=== PATIENT | male | born 1965 | race Caucasian/White ===

== ENCOUNTER 2017-07-10 13:50 | Emergency (ER) | payer BC ==
--- NOTE | 2017-07-10 16:33 | ERPHSYRPT ---
- History of Present Illness Time Seen by Provider: 07/10/17 16:26 Source: patient, family Exam Limitations: no limitations Patient Subjective Stated Complaint: rash to right back and pain to right leg Triage Nursing Assessment: To er c/o rash to right side back with pain associated and pain to right leg. No rash noted to right leg though pt states very sensitive to touch. rash is dry and not seeping pt states pain is worse at night and with clothing. pt was placed on acycolvir 2 weeks ago and finished med with no reilief. pt p/w/d resp easy no other sx Physician History: This is a 52-year-old white male with history of diabetes type 2 coronary artery disease and high blood pressure. Patient states he has had a papular rash which resembled chickenpox which has dried up this was about 3 weeks ago. He states that he was placed on an antiviral by his doctor. He is having pain in his right scapular area right shoulder and right of lateral hip and anterior thigh. He has no obvious injuries. He states the pain has been going on since he was having the rash earlier. Past medical history includes diabetes type 2 coronary artery disease high blood pressure. Timing/Duration: week(s) (3 weeks) Severity: moderate Modifying Factors: Improves With: other (patient finished a course of antivirals the end of May) Associated Symptoms: rash, other (pain right scapular area right lateral hip right anterior thigh 3 weeks), No nausea, No vomiting, No abdominal pain, No shortness of breath, No heartburn, No diaphoresis, No cough, No chills, No chest pain, No fever, No headaches, No loss of appetite, No malaise, No syncope , No seizure, No weakness Allergies/Adverse Reactions: atenolol Allergy (Verified 07/10/17 15:28) Home Medications: Empagliflozin [Jardiance] 25 mg PO DAILY 07/10/17 [History] Fenofibrate,Micronized [Fenofibrate] 134 mg PO DAILY 07/10/17 [History] Glimepiride [Glimepiride] 2 mg PO DAILY 07/10/17 [History] Hydrochlorothiazide [Hydrochlorothiazide] 12.5 mg PO DAILY 07/10/17 [History] Losartan Potassium [Losartan Potassium] 100 mg PO DAILY 07/10/17 [History] Metformin HCl 500 mg [Glucophage 500 MG] 1,000 mg PO BIDWM 07/10/17 [ History] Pravastatin Sodium [Pravastatin Sodium] 40 mg PO DAILY 07/10/17 [History] Hx Influenza Vaccination/Date Given: No - Review of Systems Constitutional: No Fever, No Chills Eyes: No Symptoms Ears, Nose, & Throat: No Symptoms Respiratory: No Cough, No Dyspnea Cardiac: No Chest Pain, No Edema, No Syncope Abdominal/Gastrointestinal: No Abdominal Pain, No Nausea, No Vomiting, No Diarrhea Genitourinary Symptoms: No Dysuria Musculoskeletal: Other (pain right posterior scapular area right lateral thigh right anterior thigh3 weeks) Skin: Rash ( papular rash right posterior upper thoracic region which seems to be drying up), Other Neurological: No Symptoms Psychological: No Symptoms Endocrine: No Symptoms All Other Systems: Reviewed and Negative - Past Medical History Pertinent Past Medical History: Yes Cardiac History: Coronary Artery Disease, Hypertension Endocrine Medical History: Diabetes Type II - Past Surgical History Past Surgical History: No - Social History Smoking Status: Never smoker Drug Use: none - Nursing Vital Signs Nursing Vital Signs: Initial Vital Signs Temperature 97.8 F 07/10/17 15:33 Pulse Rate 86 07/10/17 15:33 Respiratory Rate 18 07/10/17 15:33 Blood Pressure 156/94 07/10/17 15:33 O2 Sat by Pulse Oximetry 96 07/10/17 15:33 Pain Scale Pain Intensity 8 - Physical Exam General Appearance: mild distress Eye Exam: PERRL/EOMI, eyes nml inspection Ears, Nose, Throat Exam: normal ENT inspection, TMs normal, pharynx normal, moist mucous membranes Neck Exam: normal inspection, non-tender, supple, full range of motion Respiratory Exam: normal breath sounds, lungs clear, No respiratory distress Cardiovascular Exam: regular rate/rhythm, normal heart sounds, normal peripheral pulses Gastrointestinal/Abdomen Exam: soft, normal bowel sounds, No tenderness, No mass Back Exam: normal inspection, normal range of motion, No CVA tenderness, No vertebral tenderness Extremity Exam: normal inspection, normal range of motion, pelvis stable Neurologic Exam: alert, oriented x 3, cooperative, normal mood/affect, nml cerebellar function, nml station & gait, sensation nml, No motor deficits Skin Exam: other (patient appears to have some a a few small scabbed areas on his rigt shoulder, each less than 1 cm. Area surrounding these somewhat tender with palpation) SpO2 Interpretation: normal (96%) SpO2: 96 Oxygen Delivery: Room Air - Course Nursing assessment & vital signs reviewed: Yes Ordered Tests: Active Orders 24 hr Category Date Time Status Accucheck STAT Care 07/10/17 16:26 Active Accucheck STAT Care 07/10/17 17:26 Active IV Insertion STAT Care 07/10/17 16:34 Active CBC W DIFF Stat Lab 07/10/17 16:55 Completed CMP Stat Lab 07/10/17 16:55 Completed Medication Summary Generic Name Dose Route Start Last Admin Trade Name Freq PRN Reason Stop Dose Admin Hydrocodone Bitart/Acetaminophen 1 tab 07/10/17 17:36 [place] 5/325 Mg PO 07/10/17 17:37 STAT ONE Discontinued Medications Generic Name Dose Route Start Last Admin Trade Name Freq PRN Reason Stop Dose Admin Sodium Chloride 1,000 mls @ 999 mls/hr 07/10/17 16:34 07/10/17 16:40 Sodium Chloride 0.9% 1000 Ml IV 07/10/17 17:34 999 mls/hr .Q1H1M STA Administration Sodium Chloride Confirm 07/10/17 16:37 Sodium Chloride 0.9% 1000 Ml Administered 07/10/17 16:38 Dose 1,000 mls @ ud .ROUTE .STK-MED ONE Lab/Rad Data: Laboratory Result Diagrams 07/10/17 16:55 07/10/17 16:55 Laboratory Results 07/10/17 07/10/17 Range/Units 16:55 16:55 WBC 6.2 (4.0-10.5) K/mm3 RBC 4.85 (4.1-5.6) M/mm3 Hgb 14.8 (12.5-18.0) gm/dl Hct 43.4 (42-50) % MCV 89.5 (78-100) fl MCH 30.5 (26-32) pg MCHC 34.1 (32-36) g/dl RDW 12.8 (11.5-14.0) % Plt Count 165 (150-450) K/mm3 MPV 11.1 H (6-9.5) fl Gran % 55.8 (36.0-66.0) % Lymphocytes % 30.9 (24.0-44.0) % Monocytes % 9.1 (0.0-12.0) % Eosinophils % 3.9 (0.00-5.0) % Basophils % 0.3 (0.0-0.4) % Basophils # 0.02 (0-0.4) Sodium 135 L (136-145) mEq/L Potassium 3.9 (3.5-5.1) mEq/L Chloride 100 (98-107) mEq/L Carbon Dioxide 24.9 (21-32) mEq/L Anion Gap 13.7 (5-15) MEQ/L BUN 20 (9-20) mg/dL Creatinine 1.16 (0.55-1.30) mg/dl Estimated GFR > 60 ML/MIN Glucose 304 H (70-110) MG/DL Calcium 8.7 (8.5-10.1) mg/dL Total Bilirubin 0.40 (0.2-1.0) mg/dL AST 26 (15-37) U/L ALT 46 (12-78) U/L Alkaline Phosphatase 90 (46-116) U/L Serum Total Protein 7.3 (6.4-8.2) gm/dL Albumin 3.6 (3.4-5.0) g/dL - Progress Progress: improved Progress Note: 07/10/17 16:32 This is a 52-year-old white male arrives with complaint of a burning pain in his right upper posterior thoracic region right hip right leg symptoms for 3 weeks corresponding to a rash which seems to have been dried up and responded with treatment to antivirals by his family doctor. Patient appears to be stable he does state that his blood sugars were high today. Blood sugar here in the emergency room is 315. Will offer patient normal saline 1 L CBC CMP Will anticipate narcotic analgesia for this patient after I check inspect.. 07/10/17 17:37 Patient's blood sugar down to 228. Labs essentially normal otherwise. Will discharge patient. Patient will be given [place] 5/325 orally sent home with prescription for [place] 5 /325 one orally every 4-6 hours as needed for pain. Patient to follow-up with his family doctor. - Departure Time of Disposition: 17:37 Departure Disposition: Home Clinical Impression: Neuropathy, Postherpetic neuralgia, Hyperglycemia Condition: Fair Critical Care Time: No Referrals: MERE MNOTES MD [Primary Care Provider] - Additional Instructions: Return home. [place] 5/325 #12 one orally 4-6 hours as needed for pain. Monitor your blood sugars carefully. Follow-up with your family doctor. Return for acute distress or for severe symptoms. Prescriptions: Hydrocodone/Acetaminophen [[place] 5-325 Tablet] 1 tab PO Q4-6HPRN PRN #12 tablet MDD 6 tablets PRN Reason: pain
[2017-07-10] MEDS ORDERED: Sodium Chloride 0.9% 1000 ML 1,000 ML IV STA (16:34)
[2017-07-10] MEDS ORDERED: Sodium Chloride 0.9% 1000 ML 1,000 ML ONE (16:37)
[2017-07-10 17:04] LABS: BASOPHIL % 0.3 % (0.0-0.4); Basophil (Absolute #) 0.02 (0-0.4); Eosinophil % 3.9 % (0.00-5.0); Eosinophil (Absolute #) 0.24 (0-0.5); Granulocyte Absolute (ANC) 3.43 (1.4-6.9); Granulocytes % 55.8 % (36.0-66.0); Hematocrit 43.4 % (42-50); Hemoglobin 14.8 gm/dl (12.5-18.0); Lymphocytes % 30.9 % (24.0-44.0); Mean Cell Volume 89.5 fl (78-100); Mean Corpuscular Hemoglobin 30.5 pg (26-32); Mean Corpuscular Hgb Concent. 34.1 g/dl (32-36); Mean Platelet Volume 11.1 fl (6-9.5); Monocyte (Absolute #) 0.56 (0.0-1.3); Monocytes % 9.1 % (0.0-12.0); Platelet Count 165 K/mm3 (150-450); Red Blood Count 4.85 M/mm3 (4.1-5.6); Red Cell Distribution Width 12.8 % (11.5-14.0); White Blood Count 6.2 K/mm3 (4.0-10.5)
[2017-07-10 17:24] LABS: ALBUMIN 3.6 g/dL (3.4-5.0); ALKALINE PHOSPHATASE 90 U/L (46-116); ANION GAP 13.7 MEQ/L (5-15); BLOOD UREA NITROGEN 20 mg/dL (9-20); CHLORIDE 100 mEq/L (98-107); Calcium 8.7 mg/dL (8.5-10.1); Carbon Dioxide 24.9 mEq/L (21-32); Creatinine 1 1.16 mg/dl (0.55-1.30); EST GLOMERULAR FILTRATION RATE > 60 ML/MIN; Glucose 304 MG/DL (70-110); Potassium 3.9 mEq/L (3.5-5.1); SGOT/AST 26 U/L (15-37); SGPT/ALT 46 U/L (12-78); SODIUM 135 mEq/L (136-145); Total Protein 7.3 gm/dL (6.4-8.2)
[2017-07-10 17:36] VITALS: O2SAT 96
[2017-07-10] MEDS ORDERED: NORCO 5/325 MG PO ONE (17:36)
[2017-07-10] MEDS ORDERED: NORCO 5/325 MG ONE (17:45)
[2017-07-10 17:55] VITALS: BP 146/77; PULSE 78
== END 2017-07-10 17:54 | disposition home or self-care (01) ==
LOC: ED 13:50
DX: G62.9 Polyneuropathy, unspecified (principal); B02.29 Other postherpetic nervous system involvement; E11.65 Type 2 diabetes mellitus with hyperglycemia; Z79.84 Long term (current) use of oral hypoglycemic drugs
CPT/HCPCS: 36000; 36415; 80053; 82962; 85025; 96360; 99284; 99285; A9270-GY

== ENCOUNTER 2017-10-31 00:24 | Observation (INO) | payer BC ==
[2017-10-31] MEDS ORDERED: ROCEPHIN 1 Gm-D5w 50 ml Bag** 1 G/50 ML IVPB IV STA (00:48)
[2017-10-31] MEDS ORDERED: PROVENTIL 2.5 MG/3 ML NEB IH ONE ×2 (00:48→00:59)
[2017-10-31] MEDS ORDERED: Zithromax 500 MG/ 250 ML NaCl Premix 500 MG/250 ML IVPB IV STA (00:48)
[2017-10-31] MEDS ORDERED: Sodium Chloride 0.9% 1000 ML 1,000 ML IV STA ×3 (00:48→04:36)
[2017-10-31] MEDS ORDERED: solu-MEDROL 125 MG IV ONE (00:48)
--- NOTE | 2017-10-31 00:57 | ERPHSYRPT ---
- History of Present Illness Time Seen by Provider: 10/31/17 00:40 Source: patient Exam Limitations: clinical condition Patient Subjective Stated Complaint: pt states he has been working in a basement all day cleaning mold and mildew; started having cough and difficulty catching his breath this pm. Triage Nursing Assessment: pt a&o x3; skin p, w, & d; assisted out of pov to wheelchair by nursing staff; family at bedside. Physician History: PATIENT WITH A HISTORY OF TYPE 2 DIABETES, HYPERTENSION AFTER IN HIS BASEMENT 2 DAYS CLEANING UP MOLD AND MILDEW COMPLAINS OF PERSISTENT COUGH, PRODUCTIVE, DIFFICULTY BREATHING AND PAIN UPON INSPIRATION. HAS EXERTIONAL DYSPNEA. DENIES FEVER OR CHILLS. Timing/Duration: day(s) Severity of Dyspnea-Max: moderate Severity of Dyspnea-Current: moderate Possible Cause: no prior episodes Modifying Factors: Improves With: coughing, other (CLEANING UP MILDEW, MOLD) Associated Symptoms: painful breathing, productive cough International travel in last 2 weeks: No Allergies/Adverse Reactions: atenolol Allergy (Intermediate, Verified 10/31/17 00:32) Difficulty Breathing Home Medications: Empagliflozin [Jardiance] 25 mg PO DAILY 07/10/17 [History] Fenofibrate,Micronized [Fenofibrate] 134 mg PO DAILY 07/10/17 [History] Glimepiride [Glimepiride] 2 mg PO DAILY 07/10/17 [History] Losartan Potassium [Losartan Potassium] 100 mg PO DAILY 07/10/17 [History] Metformin HCl 500 mg [Glucophage 500 MG] 1,000 mg PO BIDWM 07/10/17 [ History] Pravastatin Sodium [Pravastatin Sodium] 40 mg PO DAILY 07/10/17 [History] hydroCHLOROthiazide [Hydrochlorothiazide] 12.5 mg PO DAILY 07/10/17 [History] Hx Tetanus, Diphtheria Vaccination/Date Given: Yes Hx Influenza Vaccination/Date Given: No Hx Pneumococcal Vaccination/Date Given: No Immunizations Up to Date: No - Review of Systems Constitutional: No Fever, No Chills Eyes: No Symptoms Ears, Nose, & Throat: No Symptoms Respiratory: Cough, Dyspnea, Dyspnea on Exertion (SANDOVAL) Cardiac: No Symptoms, Chest Pain, No Edema, No Syncope Abdominal/Gastrointestinal: No Symptoms, No Abdominal Pain, No Nausea, No Vomiting, No Diarrhea Genitourinary Symptoms: No Symptoms, No Dysuria Musculoskeletal: No Symptoms, No Back Pain, No Neck Pain Skin: No Symptoms, No Rash Neurological: No Dizziness, No Focal Weakness, No Sensory Changes Psychological: No Symptoms Endocrine: No Symptoms All Other Systems: Reviewed and Negative - Past Medical History Pertinent Past Medical History: Yes Cardiac History: Coronary Artery Disease, Hypertension Endocrine Medical History: Diabetes Type II - Past Surgical History Past Surgical History: No - Social History Smoking Status: Never smoker Exposure to second hand smoke: No Drug Use: none Patient Lives Alone: No - Nursing Vital Signs Nursing Vital Signs: Initial Vital Signs Temperature 99.1 F 10/31/17 00:25 Pulse Rate 108 H 10/31/17 00:25 Respiratory Rate 20 10/31/17 00:25 Blood Pressure 155/98 10/31/17 00:25 O2 Sat by Pulse Oximetry 95 10/31/17 00:25 Pain Scale Pain Intensity 0 - Physical Exam General Appearance: moderate distress Eye Exam: PERRL/EOMI Neck Exam: normal inspection, supple Respiratory Exam: diminished breath sounds, prolonged expirations, wheezing Cardiovascular/Chest Exam: normal heart sounds, regular rate/rhythm, tachycardia Abdominal/Gastrointestinal Exam: soft, normal bowel sounds Extremity Exam: non-tender, normal range of motion Peripheral Pulses Exam: carotid (R): 2+, carotid (L): 2+, femoral (R): 2+, femoral (L): 2+, dorsalis-pedis (R): 2+, dorsalis-pedis (L): 2+ Neurologic Exam: alert, oriented x 3 Skin Exam: normal color SpO2 Interpretation: normal SpO2: 95 Oxygen Delivery: Room Air - Course EKG Interpreted by Me: RATE, Sinus Rhythm, Sinus Tach, NORMAL AXIS, Non- specific ST Changes - Radiology Exams Chest X-ray Interpretation: Interpreted by me (THERE IS A RIGHT INFRAHILAR INFILTRATE) Ordered Tests: Active Orders 24 hr Category Date Time Status Accucheck ACHS Care 10/31/17 05:03 Ordered Children Librarian STAT Care 10/31/17 00:48 Active Code Status Order ROUTINE Care 10/31/17 05:03 Ordered EKG-ER Only STAT Care 10/31/17 00:48 Active IV Care Q6H Care 10/31/17 05:03 Ordered IV Insertion STAT Care 10/31/17 00:48 Active Oxygen-ED Only NASAL CANNULA 2 lpm Care 10/31/17 00:[address] in Observation ROUTINE Care 10/31/17 05:03 Ordered Gt Swan, Apply ROUTINE Care 10/31/17 05:03 Ordered Vital Signs Q4H Care 10/31/17 05:03 Ordered Weight,Daily 0600 Care 10/31/17 05:03 Ordered CHEST 1 VIEW (PORTABLE) Stat Exams 10/31/17 00:48 Taken BLOOD CULTURE Stat Lab 10/31/17 00:48 Ordered CBC W DIFF Stat Lab 10/31/17 01:09 Completed CMP Stat Lab 10/31/17 01:09 Completed D-DIMER QUANTITATION Stat Lab 10/31/17 01:09 Completed Lactic Acid Stat Lab 10/31/17 01:08 Completed Lactic Acid Stat Lab 10/31/17 04:26 Results MAGNESIUM Stat Lab 10/31/17 01:09 Completed NT PRO BNP Stat Lab 10/31/17 01:09 Completed PROTIME WITH INR Stat Lab 10/31/17 01:09 Completed TROPONIN Q3H Lab 10/31/17 01:09 Completed TROPONIN Q3H Lab 10/31/17 04:18 Completed TROPONIN Q3H Lab 10/31/17 07:00 Ordered TROPONIN Q3H Lab 10/31/17 10:00 Ordered TROPONIN Q3H Lab 10/31/17 13:00 Ordered Oxygen NASAL CANNULA 2 lpm RT 10/31/17 05:03 Ordered Pulse Oximetry CONTINUOUS RT 10/31/17 05:05 Ordered Respiratory Nebulizer Q4H RT 10/31/17 05:03 Ordered Respiratory Nebulizer STAT RT 10/31/17 00:50 Completed Transfer Order Routine Transfer 10/31/17 Ordered Medication Summary Generic Name Dose Route Start Last Admin Trade Name Freq PRN Reason Stop Dose Admin Acetaminophen 650 mg 10/31/17 05:07 Tylenol 325 Mg PO 11/30/17 05:06 Q4H PRN PRN PAIN AND/OR FEVER Albuterol/Ipratropium 3 ml 10/31/17 07:00 Duoneb 0.5-3 Mg/3 Ml Neb IH 11/30/17 06:59 Q4HRT FERNANDO Sodium Chloride 1,000 mls @ 999 mls/hr 10/31/17 04:36 Sodium Chloride 0.9% 1000 Ml IV 10/31/17 05:36 .Q1H1M STA Azithromycin 500 mg in 250 mls @ 250 mls/hr 10/31/17 10:00 Zithromax 500 Mg/ 250 Ml Nacl Premix IV 11/30/17 09:59 Q24H10 FERNANDO Ceftriaxone Sodium/Dextrose 1 g in 50 mls @ 100 mls/hr 10/31/17 10:00 Rocephin 1 Gm-D5w 50 Ml Bag IV 11/30/17 09:59 Q24H10 FERNANDO Sodium Chloride 1,000 mls @ 100 mls/hr 10/31/17 05:15 Sodium Chloride 0.9% 1000 Ml IV 11/30/17 05:14 .Q10H FERNANDO Levalbuterol HCl 1.25 mg 10/31/17 05:07 Xopenex 1.25 Mg/0.5 Ml Ud Nebule IH 11/30/17 05:06 Q2HPRN PRN DYSPNEA Losartan Potassium 100 mg 10/31/17 10:00 Cozaar 50 Mg PO 11/30/17 09:59 DAILY [facility] Methylprednisolone Sodium Succinate 80 mg 10/31/17 06:00 Solu-Medrol 125 Mg IV 11/30/17 05:59 Q6HT FERNANDO Discontinued Medications Generic Name Dose Route Start Last Admin Trade Name Freq PRN Reason Stop Dose Admin Albuterol Sulfate 10 mg 10/31/17 00:48 10/31/17 01:04 Proventil 2.5 Mg/3 Ml Neb IH 10/31/17 00:49 10 mg STAT ONE Administration Albuterol Sulfate Confirm 10/31/17 00:59 Proventil 2.5 Mg/3 Ml Neb Administered 10/31/17 01:00 Dose 10 mg IH .STK-MED ONE Ceftriaxone Sodium/Dextrose 1 g in 50 mls @ 100 mls/hr 10/31/17 00:48 02:33 Rocephin 1 Gm-D5w 50 Ml Bag IV 10/31/17 01:17 Infused STAT STA Infusion Sodium Chloride 1,000 mls @ 999 mls/hr 10/31/17 00:48 10/31/17 04:59 Sodium Chloride 0.9% 1000 Ml IV 10/31/17 01:48 Infused .Q1H1M STA Infusion Azithromycin 500 mg in 250 mls @ 250 mls/hr 10/31/17 00:48 10/31/17 04:57 Zithromax 500 Mg/ 250 Ml Nacl Premix IV 10/31/17 01:47 Infused STAT STA Infusion Sodium Chloride Confirm 10/31/17 01:22 Sodium Chloride 0.9% 1000 Ml Administered 10/31/17 01:23 Dose 1,000 mls @ ud .ROUTE .STK-MED ONE Ceftriaxone Sodium/Dextrose Confirm 10/31/17 01:22 Rocephin 1 Gm-D5w 50 Ml Bag Administered 10/31/17 01:23 Dose 1 g in 50 mls @ ud IV .STK-MED ONE Sodium Chloride 1,000 mls @ 999 mls/hr 10/31/17 01:24 10/31/17 04:17 Sodium Chloride 0.9% 1000 Ml IV 10/31/17 02:24 999 mls/hr .Q1H1M STA Administration Azithromycin Confirm 10/31/17 01:55 Zithromax 500 Mg/ 250 Ml Nacl Premix Administered 10/31/17 01:56 Dose 500 mg in 250 mls @ ud IV .STK-MED ONE Sodium Chloride Confirm 10/31/17 01:56 Sodium Chloride 0.9% 1000 Ml Administered 10/31/17 01:57 Dose 1,000 mls @ ud .ROUTE .STK-MED ONE Methylprednisolone Sodium Succinate 125 mg 10/31/17 00:48 10/31/17 01:24 Solu-Medrol 125 Mg IV 10/31/17 00:49 125 mg STAT ONE Administration Methylprednisolone Sodium Succinate Confirm 10/31/17 01:21 Solu-Medrol 125 Mg Administered 10/31/17 01:22 Dose 125 mg .ROUTE .STK-MED ONE Lab/Rad Data: Laboratory Result Diagrams 10/31/17 01:09 10/31/17 01:09 Laboratory Results 10/31/17 10/31/17 10/31/17 Range/Units 04:26 04:18 01:09 WBC (4.0-10.5) K/mm3 RBC (4.1-5.6) M/mm3 Hgb (12.5-18.0) gm/dl Hct (42-50) % MCV (78-100) fl MCH (26-32) pg MCHC (32-36) g/dl RDW (11.5-14.0) % Plt Count (150-450) K/mm3 MPV (6-9.5) fl Gran % (36.0-66.0) % Eos # (Auto) (0-0.5) Absolute Lymphs (auto) (1.0-4.6) Absolute Monos (auto) (0.0-1.3) Lymphocytes % (24.0-44.0) % Monocytes % (0.0-12.0) % Eosinophils % (0.00-5.0) % Basophils % (0.0-0.4) % Absolute Granulocytes (1.4-6.9) Basophils # (0-0.4) PT (8.83-12.87) SECONDS INR (0.8-3.0) D-Dimer (215-500) ng/mL Sodium (137-145) mmol/L Potassium (3.5-5.1) mmol/L Chloride (98-107) mmol/L Carbon Dioxide (22-30) mmol/L Anion Gap (5-15) MEQ/L BUN (9-20) mg/dL Creatinine (0.66-1.25) mg/dL Estimated GFR ML/MIN Glucose (74-106) mg/dL Lactic Acid 3.0 H (0.4-2.0) Calcium (8.4-10.2) mg/dL Magnesium (1.6-2.3) mg/dL Total Bilirubin (0.2-1.3) mg/dL AST (17-59) U/L ALT (0-50) U/L Alkaline Phosphatase (38-126) U/L Troponin I < 0.012 (0.000-0.034) ng/mL NT-Pro-B Natriuret Pep (0-900) pg/mL Serum Total Protein (6.3-8.2) g/dL Albumin (3.5-5.0) g/dL Influenza Type A Ag NEGATIVE (NEGATIVE) Influenza Type B Ag NEGATIVE (NEGATIVE) RSV (PCR) NEGATIVE (Negative) 10/31/17 10/31/17 10/31/17 Range/Units 01:09 01:09 01:09 WBC (4.0-10.5) K/mm3 RBC (4.1-5.6) M/mm3 Hgb (12.5-18.0) gm/dl Hct (42-50) % MCV (78-100) fl MCH (26-32) pg MCHC (32-36) g/dl RDW (11.5-14.0) % Plt Count (150-450) K/mm3 MPV (6-9.5) fl Gran % (36.0-66.0) % Eos # (Auto) (0-0.5) Absolute Lymphs (auto) (1.0-4.6) Absolute Monos (auto) (0.0-1.3) Lymphocytes % (24.0-44.0) % Monocytes % (0.0-12.0) % Eosinophils % (0.00-5.0) % Basophils % (0.0-0.4) % Absolute Granulocytes (1.4-6.9) Basophils # (0-0.4) PT 11.1 (8.83-12.87) SECONDS INR 0.95 (0.8-3.0) D-Dimer < 215 L (215-500) ng/mL Sodium 140 (137-145) mmol/L Potassium 3.9 (3.5-5.1) mmol/L Chloride 104 (98-107) mmol/L Carbon Dioxide 24 (22-30) mmol/L Anion Gap 15.9 H (5-15) MEQ/L BUN 25 H (9-20) mg/dL Creatinine 1.09 (0.66-1.25) mg/dL Estimated GFR > 60.0 ML/MIN Glucose 207 H (74-106) mg/dL Lactic Acid (0.4-2.0) Calcium 9.2 (8.4-10.2) mg/dL Magnesium 1.9 (1.6-2.3) mg/dL Total Bilirubin 0.30 (0.2-1.3) mg/dL AST 24 (17-59) U/L ALT 36 (0-50) U/L Alkaline Phosphatase 76 (38-126) U/L Troponin I < 0.012 (0.000-0.034) ng/mL NT-Pro-B Natriuret Pep 24.7 (0-900) pg/mL Serum Total Protein 7.2 (6.3-8.2) g/dL Albumin 4.0 (3.5-5.0) g/dL Influenza Type A Ag (NEGATIVE) Influenza Type B Ag (NEGATIVE) RSV (PCR) (Negative) 10/31/17 10/31/17 Range/Units 01:09 01:08 WBC 10.2 (4.0-10.5) K/mm3 RBC 4.82 (4.1-5.6) M/mm3 Hgb 15.2 (12.5-18.0) gm/dl Hct 43.5 (42-50) % MCV 90.2 (78-100) fl MCH 31.5 (26-32) pg MCHC 34.9 (32-36) g/dl RDW 12.6 (11.5-14.0) % Plt Count 185 (150-450) K/mm3 MPV 11.1 H (6-9.5) fl Gran % 72.8 H (36.0-66.0) % Eos # (Auto) 0.24 (0-0.5) Absolute Lymphs (auto) 1.71 (1.0-4.6) Absolute Monos (auto) 0.79 (0.0-1.3) Lymphocytes % 16.8 L (24.0-44.0) % Monocytes % 7.8 (0.0-12.0) % Eosinophils % 2.4 (0.00-5.0) % Basophils % 0.2 (0.0-0.4) % Absolute Granulocytes 7.41 H (1.4-6.9) Basophils # 0.02 (0-0.4) PT (8.83-12.87) SECONDS INR (0.8-3.0) D-Dimer (215-500) ng/mL Sodium (137-145) mmol/L Potassium (3.5-5.1) mmol/L Chloride (98-107) mmol/L Carbon Dioxide (22-30) mmol/L Anion Gap (5-15) MEQ/L BUN (9-20) mg/dL Creatinine (0.66-1.25) mg/dL Estimated GFR ML/MIN Glucose (74-106) mg/dL Lactic Acid 2.6 H (0.4-2.0) Calcium (8.4-10.2) mg/dL Magnesium (1.6-2.3) mg/dL Total Bilirubin (0.2-1.3) mg/dL AST (17-59) U/L ALT (0-50) U/L Alkaline Phosphatase (38-126) U/L Troponin I (0.000-0.034) ng/mL NT-Pro-B Natriuret Pep (0-900) pg/mL Serum Total Protein (6.3-8.2) g/dL Albumin (3.5-5.0) g/dL Influenza Type A Ag (NEGATIVE) Influenza Type B Ag (NEGATIVE) RSV (PCR) (Negative) - Progress Progress: improved Air Movement: good Progress Note: 10/31/17 03:11 IV NORMAL SALINE BOLUS 2 LITER OVER 2 HOURS, AFTER 2 SETS OF BLOOD CULTURES, ANTIBIOTIC ROCEPHIN 1GM, ZITHROMAX 500MG IVPB, SOLUMEDROL 125MG IV, CONTINUOUS NEBULIZER ALBUTEROL 10MG OVER 1 HOUR. CHEST EXAM WHEEZES RESOLVED, IMPROVE AIR EXCHANGE REPEAT LACTIC ACID 3.0, PULSES 2+ WILL GIVE 3RD BOLUS NORMAL SALINE 10/31/17 05:00 Blood Culture(s) Obtained: Yes Antibiotics given: Yes Discussed with : Amrit (DISCUSSED WITH DR MONTES AT 0450 FOR OBSERVATION) - Departure Time of Disposition: 05:17 Departure Disposition: Observation Clinical Impression: ACUTE DYSPNEA, PNEUMONIA WITH BRONCHIOSPASM Condition: Stable Critical Care Time: No Referrals: MERE MONTES MD [Primary Care Provider] - Prescriptions: RX: Albuterol 2.5 mg/3 ml Neb [Proventil 2.5 mg/3 ml Neb] 2.5 mg IH Q4HPRN PRN #30 neb PRN Reason: Constipation Cefdinir [Omnicef 300 mg] 300 mg PO BID #20 capsule RX: Prednisone 20 mg [Deltasone 20 mg] 2 tab PO DAILY #8 tablet
[2017-10-31 01:13] LABS: BASOPHIL % 0.2 % (0.0-0.4); Basophil (Absolute #) 0.02 (0-0.4); Eosinophil % 2.4 % (0.00-5.0); Eosinophil (Absolute #) 0.24 (0-0.5); Granulocyte Absolute (ANC) 7.41 (1.4-6.9); Granulocytes % 72.8 % (36.0-66.0); Hematocrit 43.5 % (42-50); Hemoglobin 15.2 gm/dl (12.5-18.0); Lymphocyte (Absolute #) 1.71 (1.0-4.6); Lymphocytes % 16.8 % (24.0-44.0); Mean Cell Volume 90.2 fl (78-100); Mean Corpuscular Hemoglobin 31.5 pg (26-32); Mean Corpuscular Hgb Concent. 34.9 g/dl (32-36); Mean Platelet Volume 11.1 fl (6-9.5); Monocyte (Absolute #) 0.79 (0.0-1.3); Monocytes % 7.8 % (0.0-12.0); Platelet Count 185 K/mm3 (150-450); Red Blood Count 4.82 M/mm3 (4.1-5.6); Red Cell Distribution Width 12.6 % (11.5-14.0); White Blood Count 10.2 K/mm3 (4.0-10.5)
[2017-10-31 01:20] LABS: Lactic Acid 2.6 (0.4-2.0)
[2017-10-31] MEDS ORDERED: solu-MEDROL 125 MG ONE (01:21)
[2017-10-31] MEDS ORDERED: ROCEPHIN 1 Gm-D5w 50 ml Bag** 1 G/50 ML IVPB IV ONE (01:22)
[2017-10-31] MEDS ORDERED: Sodium Chloride 0.9% 1000 ML 1,000 ML ONE ×2 (01:22→01:56)
[2017-10-31 01:31] LABS: ALKALINE PHOSPHATASE 76 U/L (38-126); ANION GAP 15.9 MEQ/L (5-15); BLOOD UREA NITROGEN 25 mg/dL (9-20); CHLORIDE 104 mmol/L (98-107); Calcium 9.2 mg/dL (8.4-10.2); Carbon Dioxide 24 mmol/L (22-30); Creatinine 1 1.09 mg/dL (0.66-1.25); Glucose 207 mg/dL (74-106); Potassium 3.9 mmol/L (3.5-5.1); SGOT/AST 24 U/L (17-59); SGPT/ALT 36 U/L (0-50); SODIUM 140 mmol/L (137-145); Total Protein 7.2 g/dL (6.3-8.2)
[2017-10-31 01:35] LABS: INR 0.95 (0.8-3.0)
[2017-10-31 01:39] LABS: NT PRO BNP 24.7 pg/mL (0-900)
[2017-10-31 01:50] LABS: INFLUENZA A NEGATIVE (NEGATIVE); INFLUENZA B NEGATIVE (NEGATIVE); RESPIRATORY SYNCTIAL VIRUS NEGATIVE (Negative)
[2017-10-31 01:54] LABS: D-DIMER QUANTITATION < 215 ng/mL (215-500)
[2017-10-31] MEDS ORDERED: Zithromax 500 MG/ 250 ML NaCl Premix 500 MG/250 ML IVPB IV ONE (01:55)
[2017-10-31] MEDS ORDERED: Xopenex 1.25 MG/0.5 ML UD NEBULE IH PRN (05:07)
[2017-10-31] MEDS ORDERED: TYLENOL 325 MG PO PRN (05:07)
[2017-10-31] MEDS ORDERED: Sodium Chloride 0.9% 1000 ML 1,000 ML IV SCH (05:15)
--- NOTE | 2017-10-31 07:11 | XRAY ---
Indication: Dyspnea, cough, and congestion. Comparison: None Portable chest demonstrates normal heart and lungs. Bony thorax intact with mild degenerative changes.
[2017-10-31 07:16] LABS: Lactic Acid 4.4 (0.4-2.0)
[2017-10-31] MEDS: DUONEB 0.5-3 MG/3 ml Neb IH SCH ×2 (07:53→11:43)
[2017-10-31] MEDS ORDERED: Glucophage 500 MG PO SCH (08:00)
[2017-10-31] MEDS ORDERED: Amaryl 2 MG PO SCH (08:00)
[2017-10-31] MEDS ORDERED: MEDICATION INTERVENTION PO SCH (09:00)
[2017-10-31] MEDS ORDERED: Cozaar 50 MG PO SCH (10:00)
[2017-10-31] MEDS ORDERED: ZOCOR 20MG PO SCH (10:00)
[2017-10-31] MEDS ORDERED: hydroDIURIL 25 MG PO SCH (10:00)
[2017-10-31] MEDS ORDERED: Tricor 145 MG PO SCH (10:00)
[2017-10-31] MEDS: solu-MEDROL 125 MG IV SCH ×2 (10:23→12:20)
--- NOTE | 2017-10-31 10:42 | PCM.HP ---
History of Present Illness - Chief Complaint Chief Complaint: c/o shortness of breath for 1-2 days History of Present Illness: is a 52 year old male. Came to the emergency room with complaining of shortness of breath for last 1-2 days. Patient has been cleaning his basement and has been exposed to mold and mildew's. Since then he was having chest congestion and nasal congestion and shortness of breath. Patient denies any fever chills nausea vomiting. - Review of Systems Constitutional: No Fever, No Chills Eyes: No Symptoms Ears, Nose, & Throat: No Symptoms Respiratory: Cough, Short Of Breath, Wheezing Cardiac: No Chest Pain, No Edema, No Syncope Abdominal/Gastrointestinal: No Abdominal Pain, No Nausea, No Vomiting, No Diarrhea Genitourinary Symptoms: No Dysuria Musculoskeletal: No Back Pain, No Neck Pain Skin: No Rash Neurological: No Dizziness, No Focal Weakness, No Sensory Changes Psychological: No Symptoms Endocrine: No Symptoms Hematologic/Lymphatic: No Symptoms Immunological/Allergic: No Symptoms Medications & Allergies Home Medications: Home Medication List Empagliflozin [Jardiance] 25 mg PO DAILY 07/10/17 [History Confirmed 10/31/17] Fenofibrate,Micronized [Fenofibrate] 134 mg PO DAILY 07/10/17 [History Confirmed 10/31/17] Glimepiride 2 mg PO DAILY 07/10/17 [History Confirmed 10/31/17] Losartan Potassium 100 mg PO DAILY 07/10/17 [History Confirmed 10/31/17] Metformin HCl 500 mg [Glucophage 500 MG] 1,000 mg PO BIDWM 07/10/17 [ History Confirmed 10/31/17] Pravastatin Sodium 40 mg PO DAILY 07/10/17 [History Confirmed 10/31/17] hydroCHLOROthiazide [Hydrochlorothiazide] 12.5 mg PO DAILY 07/10/17 [History Confirmed 10/31/17] Albuterol 2.5 mg/3 ml Neb [Proventil 2.5 mg/3 ml Neb] 2.5 mg IH Q4HPRN PRN #30 neb 10/31/17 [Rx] Cefdinir [Omnicef 300 mg] 300 mg PO BID #20 capsule 10/31/17 [Rx] Methylprednisolone Packet [Medrol Dosepack] 4 mg PO UD #30 packet [Rx] Prednisone 20 mg [Deltasone 20 mg] 2 tab PO DAILY #8 tablet 10/31/17 [Rx] Allergies/Adverse Reactions: Allergies Allergy/AdvReac Type Severity Reaction Status Date / Time atenolol Allergy Intermediate Difficulty Verified 10/31/17 05:52 Breathing - Past Medical History Past Medical History: Yes Neurological History: No Pertinent History ENT History: No Pertinent History Cardiac History: Coronary Artery Disease, Hypertension Respiratory History: No Pertinent History Endocrine Medical History: Diabetes Type II Musculoskelatal History: No Pertinent History GI Medical History: No Pertinent History History: No Pertinent History Pyscho-Social History: No Pertinent History Male Reproductive Disorders: No Pertinent History - Past Surgical History Past Surgical History: No Neuro Surgical History: No Pertinent History Cardiac History: No Pertinent History Respiratory Surgery: No Pertinent History GI Surgical History: No Pertinent History Genitourinary Surgical Hx: No Pertinent History Musculskeletal Surgical Hx: No Pertinent History Male Surgical History: No Pertinent History - Social History Smoking Status: Never smoker Exposure to second hand smoke: No Alcohol: None Drug Use: none - Physical Exam Vital Signs: Vital Signs - 24 hr Temp Pulse Resp BP Pulse Ox 10/31/17 07:56 98.1 F 111 H 24 155/79 94 L 10/31/17 07:53 109 H 20 94 L 10/31/17 06:08 98.1 F 111 H 24 155/79 94 L 10/31/17 06:00 92 L 10/31/17 05:17 95 10/31/17 01:38 115 H 20 164/98 97 10/31/17 01:06 105 H 20 95 10/31/17 00:25 99.1 F 108 H 20 155/98 95 General Appearance: no apparent distress, alert Neurologic Exam: alert, oriented x 3, cooperative, normal mood/affect, nml cerebellar function, nml station & gait, sensation nml, No motor deficits Eye Exam: PERRL/EOMI, eyes nml inspection Ears, Nose, Throat Exam: normal ENT inspection, TMs normal, pharynx normal, moist mucous membranes Neck Exam: normal inspection, non-tender, supple, full range of motion Respiratory Exam: diminished breath sounds, wheezing ( Potential), No respiratory distress Cardiovascular Exam: regular rate/rhythm, normal heart sounds, normal peripheral pulses Gastrointestinal/Abdomen Exam: soft, normal bowel sounds, No tenderness, No mass Back Exam: normal inspection, normal range of motion, No CVA tenderness, No vertebral tenderness Extremity Exam: normal inspection, normal range of motion, pelvis stable Skin Exam: normal color, warm, dry, No rash Lymphatic Exam: No adenopathy Results - Labs Lab/Micro Results: Accuchecks Date 10/31/17 Time 07:30 Accucheck Value: 362 Lab Results-Last 24 Hours 10/31/17 10/31/17 10/31/17 Range/Units 07:00 07:00 10:15 Lactic Acid 4.4 H 5.0 H (0.4-2.0) Troponin I < 0.012 (0.000-0.034) ng/mL Accuchecks Date 10/31/17 Time 07:30 Accucheck Value: 362 Assessment/Plan (1) Allergic bronchitis without complication Current Visit: Yes Status: Acute Assessment & Plan: Chief Complaint Diagnosis c/o shortness of breath for 1-2 days Allergies Allergy/AdvReac Type Severity Reaction Status Date / Time atenolol Allergy Intermediate Difficulty Verified 10/31/17 05:52 Breathing Vital Signs (Last 24 hours) Temp Pulse Resp BP Pulse Ox 10/31/17 12:00 98.3 F 106 H 20 141/81 94 L 10/31/17 11:50 69 20 93 L 10/31/17 08:00 24 10/31/17 07:56 98.1 F 111 H 24 155/79 94 L 10/31/17 07:53 109 H 20 94 L 10/31/17 06:08 98.1 F 111 H 24 155/79 94 L 10/31/17 06:00 92 L 10/31/17 05:17 95 10/31/17 01:38 115 H 20 164/98 97 10/31/17 01:06 105 H 20 95 10/31/17 00:25 99.1 F 108 H 20 155/98 95 Home Medications Medication Instructions Recorded Confirmed Last Taken Type Albuterol 2.5 mg/3 ml Neb 2.5 mg IH Q4HPRN PRN #30 neb 10/31/17 Unknown Rx [Proventil 2.5 mg/3 ml Neb] Cefdinir [Omnicef 300 mg] 300 mg PO BID #20 capsule 10/31/17 Unknown Rx Methylprednisolone Packet 4 mg PO UD #30 packet 10/31/17 Unknown Rx [Medrol Dosepack] Prednisone 20 mg [Deltasone 20 2 tab PO DAILY #8 tablet 10/31/17 Unknown Rx mg] Current Medications Generic Name Dose Route Start Last Admin Trade Name Freq PRN Reason Stop Dose Admin Acetaminophen 650 mg 10/31/17 05:07 Tylenol 325 Mg PO 11/30/17 05:06 Q4H PRN PRN PAIN AND/OR FEVER Albuterol/Ipratropium 3 ml 10/31/17 07:00 10/31/17 11:43 Duoneb 0.5-3 Mg/3 Ml Neb IH 11/30/17 06:59 3 ml Q4HRT FERNANDO Administration Fenofibrate 145 mg 10/31/17 10:00 10/31/17 10:18 Tricor 145 Mg PO 11/30/17 09:59 145 mg DAILY FERNANDO Administration Glimepiride 2 mg 10/31/17 08:00 10/31/17 10:18 Amaryl 2 Mg PO 11/30/17 07:59 2 mg BREAKFAST FERNANDO Administration Hydrochlorothiazide 12.5 mg 10/31/17 10:00 10/31/17 10:18 Hydrodiuril 25 Mg PO 11/30/17 09:59 12.5 mg DAILY FERNANDO Administration Azithromycin 500 mg in 250 mls @ 250 mls/hr 10/31/17 22:00 Zithromax 500 Mg/ 250 Ml Nacl Premix IV 11/30/17 21:59 QPM FERNANDO Ceftriaxone Sodium/Dextrose 1 g in 50 mls @ 100 mls/hr 10/31/17 22:00 Rocephin 1 Gm-D5w 50 Ml Bag IV 11/30/17 21:59 QPM FERNANDO Sodium Chloride 1,000 mls @ 100 mls/hr 10/31/17 05:15 10/31/17 08:28 Sodium Chloride 0.9% 1000 Ml IV 11/30/17 05:14 100 mls/hr .Q10H FERNANDO Administration Levalbuterol HCl 1.25 mg 10/31/17 05:07 Xopenex 1.25 Mg/0.5 Ml Ud Nebule IH 11/30/17 05:06 Q2HPRN PRN DYSPNEA Losartan Potassium 100 mg 10/31/17 10:00 10/31/17 10:18 Cozaar 50 Mg PO 11/30/17 09:59 100 mg DAILY FERNANDO Administration Metformin HCl 1,000 mg 10/31/17 08:00 10/31/17 10:18 Glucophage 500 Mg PO 11/30/17 07:59 1,000 mg BIDWM FERNANDO Administration Methylprednisolone Sodium Succinate 80 mg 10/31/17 06:00 10/31/17 12:20 Solu-Medrol 125 Mg IV 11/30/17 05:59 80 mg Q6HT FERNANDO Administration Miscellaneous Information 1 each 10/31/17 09:00 Medication Intervention PO 11/30/17 08:59 .RN TO CHECK ON FERNANDO Simvastatin 40 mg 10/31/17 10:00 10/31/17 10:18 Zocor 20mg PO 11/30/17 09:59 40 mg DAILY FERNANOD Administration Discontinued Medications Generic Name Dose Route Start Last Admin Trade Name Freq PRN Reason Stop Dose Admin Albuterol Sulfate 10 mg 10/31/17 00:48 10/31/17 01:04 Proventil 2.5 Mg/3 Ml Neb IH 10/31/17 00:49 10 mg STAT ONE Administration Albuterol Sulfate Confirm 10/31/17 00:59 Proventil 2.5 Mg/3 Ml Neb Administered 10/31/17 01:00 Dose 10 mg IH .STK-MED ONE Ceftriaxone Sodium/Dextrose 1 g in 50 mls @ 100 mls/hr 10/31/17 00:48 02:33 Rocephin 1 Gm-D5w 50 Ml Bag IV 10/31/17 01:17 Infused STAT STA Infusion Sodium Chloride 1,000 mls @ 999 mls/hr 10/31/17 00:48 10/31/17 04:59 Sodium Chloride 0.9% 1000 Ml IV 10/31/17 01:48 Infused .Q1H1M STA Infusion Azithromycin 500 mg in 250 mls @ 250 mls/hr 10/31/17 00:48 10/31/17 04:57 Zithromax 500 Mg/ 250 Ml Nacl Premix IV 10/31/17 01:47 Infused STAT STA Infusion Sodium Chloride Confirm 10/31/17 01:22 Sodium Chloride 0.9% 1000 Ml Administered 10/31/17 01:23 Dose 1,000 mls @ ud .ROUTE .STK-MED ONE Ceftriaxone Sodium/Dextrose Confirm 10/31/17 01:22 Rocephin 1 Gm-D5w 50 Ml Bag Administered 10/31/17 01:23 Dose 1 g in 50 mls @ ud IV .STK-MED ONE Sodium Chloride 1,000 mls @ 999 mls/hr 10/31/17 01:24 10/31/17 04:17 Sodium Chloride 0.9% 1000 Ml IV 10/31/17 02:24 999 mls/hr .Q1H1M STA Administration Azithromycin Confirm 10/31/17 01:55 Zithromax 500 Mg/ 250 Ml Nacl Premix Administered 10/31/17 01:56 Dose 500 mg in 250 mls @ ud IV .STK-MED ONE Sodium Chloride Confirm 10/31/17 01:56 Sodium Chloride 0.9% 1000 Ml Administered 10/31/17 01:57 Dose 1,000 mls @ ud .ROUTE .STK-MED ONE Sodium Chloride 1,000 mls @ 999 mls/hr 10/31/17 04:36 Sodium Chloride 0.9% 1000 Ml IV 10/31/17 05:36 .Q1H1M STA Methylprednisolone Sodium Succinate 125 mg 10/31/17 00:48 10/31/17 01:24 Solu-Medrol 125 Mg IV 10/31/17 00:49 125 mg STAT ONE Administration Methylprednisolone Sodium Succinate Confirm 10/31/17 01:21 Solu-Medrol 125 Mg Administered 10/31/17 01:22 Dose 125 mg .ROUTE .STK-MED ONE Intake & Output (Last 24 hours) 10/29/17 10/30/17 10/31/17 11/01/17 11:59 11:59 11:59 11:59 Intake Total 0 Balance 0 Weight 110.9 kg Microbiology Results (Last 24 hours) 10/31/17 00:48 Blood Blood Culture Gram Stain - Pending 10/31/17 00:48 Blood Blood Culture - Pending 10/31/17 01:09 Blood Blood Culture Gram Stain - Pending 10/31/17 01:09 Blood Blood Culture - Pending Laboratory Results (Last 24 hours) 10/31/17 10/31/17 10/31/17 10:15 09:55 07:00 WBC RBC Hgb Hct MCV MCH MCHC RDW Plt Count MPV Gran % Eos # (Auto) Absolute Lymphs (auto) Absolute Monos (auto) Lymphocytes % Monocytes % Eosinophils % Basophils % Absolute Granulocytes Basophils # PT INR D-Dimer Sodium Potassium Chloride Carbon Dioxide Anion Gap BUN Creatinine Estimated GFR Glucose Hemoglobin A1c Lactic Acid 5.0 H 4.4 H Calcium Magnesium Total Bilirubin AST ALT Alkaline Phosphatase Troponin I < 0.012 NT-Pro-B Natriuret Pep Serum Total Protein Albumin Influenza Type A Ag Influenza Type B Ag RSV (PCR) 10/31/17 10/31/17 10/31/17 07:00 04:26 04:18 WBC RBC Hgb Hct MCV MCH MCHC RDW Plt Count MPV Gran % Eos # (Auto) Absolute Lymphs (auto) Absolute Monos (auto) Lymphocytes % Monocytes % Eosinophils % Basophils % Absolute Granulocytes Basophils # PT INR D-Dimer Sodium Potassium Chloride Carbon Dioxide Anion Gap BUN Creatinine Estimated GFR Glucose Hemoglobin A1c Lactic Acid 3.0 H Calcium Magnesium Total Bilirubin AST ALT Alkaline Phosphatase Troponin I < 0.012 < 0.012 NT-Pro-B Natriuret Pep Serum Total Protein Albumin Influenza Type A Ag Influenza Type B Ag RSV (PCR) 10/31/17 10/31/17 10/31/17 01:09 01:09 01:09 WBC RBC Hgb Hct MCV MCH MCHC RDW Plt Count MPV Gran % Eos # (Auto) Absolute Lymphs (auto) Absolute Monos (auto) Lymphocytes % Monocytes % Eosinophils % Basophils % Absolute Granulocytes Basophils # PT 11.1 INR 0.95 D-Dimer < 215 L Sodium Potassium Chloride Carbon Dioxide Anion Gap BUN Creatinine Estimated GFR Glucose Hemoglobin A1c Lactic Acid Calcium Magnesium Total Bilirubin AST ALT Alkaline Phosphatase Troponin I < 0.012 NT-Pro-B Natriuret Pep Serum Total Protein Albumin Influenza Type A Ag NEGATIVE Influenza Type B Ag NEGATIVE RSV (PCR) NEGATIVE 10/31/17 10/31/17 10/31/17 01:09 01:09 01:08 WBC 10.2 RBC 4.82 Hgb 15.2 Hct 43.5 MCV 90.2 MCH 31.5 MCHC 34.9 RDW 12.6 Plt Count 185 MPV 11.1 H Gran % 72.8 H Eos # (Auto) 0.24 Absolute Lymphs (auto) 1.71 Absolute Monos (auto) 0.79 Lymphocytes % 16.8 L Monocytes % 7.8 Eosinophils % 2.4 Basophils % 0.2 Absolute Granulocytes 7.41 H Basophils # 0.02 PT INR D-Dimer Sodium 140 Potassium 3.9 Chloride 104 Carbon Dioxide 24 Anion Gap 15.9 H BUN 25 H Creatinine 1.09 Estimated GFR > 60.0 Glucose 207 H Hemoglobin A1c Lactic Acid 2.6 H Calcium 9.2 Magnesium 1.9 Total Bilirubin 0.30 AST 24 ALT 36 Alkaline Phosphatase 76 Troponin I NT-Pro-B Natriuret Pep 24.7 Serum Total Protein 7.2 Albumin 4.0 Influenza Type A Ag Influenza Type B Ag RSV (PCR) 10/31/17 00:48 WBC RBC Hgb Hct MCV MCH MCHC RDW Plt Count MPV Gran % Eos # (Auto) Absolute Lymphs (auto) Absolute Monos (auto) Lymphocytes % Monocytes % Eosinophils % Basophils % Absolute Granulocytes Basophils # PT INR D-Dimer Sodium Potassium Chloride Carbon Dioxide Anion Gap BUN Creatinine Estimated GFR Glucose Hemoglobin A1c 7.83 H Lactic Acid Calcium Magnesium Total Bilirubin AST ALT Alkaline Phosphatase Troponin I NT-Pro-B Natriuret Pep Serum Total Protein Albumin Influenza Type A Ag Influenza Type B Ag RSV (PCR) Orders (Last 24 hours) Category Date Time Status Accucheck ACHS Care 10/31/17 05:03 Active [employer] STAT Care 10/31/17 00:48 Active Code Status Order ROUTINE Care 10/31/17 05:03 Active EKG-ER Only STAT Care 10/31/17 00:48 Completed IV Care Q6H Care 10/31/17 05:03 Active IV Insertion STAT Care 10/31/17 00:48 Completed Oxygen-ED Only NASAL CANNULA 2 lpm Care 10/31/17 00:[address] in Observation ROUTINE Care 10/31/17 05:03 Active Gt Beny, Apply ROUTINE Care 10/31/17 05:03 Active Vital Signs Q4H Care 10/31/17 05:03 Active Weight,Daily 0600 Care 10/31/17 05:03 Active CHEST 1 VIEW (PORTABLE) Stat Exams 10/31/17 00:48 Completed BLOOD CULTURE Stat Lab 10/31/17 00:48 Ordered CBC W DIFF Stat Lab 10/31/17 01:09 Completed CMP Stat Lab 10/31/17 01:09 Completed D-DIMER QUANTITATION Stat Lab 10/31/17 01:09 Completed HEMOGLOBIN A1C Urgent Lab 10/31/17 00:48 Completed Lactic Acid Stat Lab 10/31/17 01:08 Completed Lactic Acid Stat Lab 10/31/17 04:26 Completed Lactic Acid Stat Lab 10/31/17 07:00 Completed Lactic Acid Stat Lab 10/31/17 10:15 Completed Lactic Acid Stat Lab 10/31/17 12:22 Ordered MAGNESIUM Stat Lab 10/31/17 01:09 Completed NT PRO BNP Stat Lab 10/31/17 01:09 Completed PROTIME WITH INR Stat Lab 10/31/17 01:09 Completed Respiratory Panel Stat Lab 10/31/17 01:09 Completed TROPONIN Q3H Lab 10/31/17 01:09 Completed TROPONIN Q3H Lab 10/31/17 04:18 Completed TROPONIN Q3H Lab 10/31/17 07:00 Completed TROPONIN Q3H Lab 10/31/17 09:55 Completed TROPONIN Q3H Lab 10/31/17 13:00 Ordered Acetaminophen 325 mg [Tylenol 325 mg] Med 10/31/17 05:07 Active 650 mg PO Q4H PRN PRN Albuterol 2.5 mg/3 ml Neb [Proventil 2.5 mg/3 ml Neb Med 10/31/17 00:59 Discontinued ] 10 mg IH .STK-MED ONE Albuterol 2.5 mg/3 ml Neb [Proventil 2.5 mg/3 ml Neb Med 10/31/17 00:48 Discontinued ] 10 mg IH STAT ONE Albuterol/Ipratropium 3ml Neb* [DUONEB 0.5-3 MG/3 ml Med 10/31/17 07:00 Active Neb] 3 ml IH Q4HRT Azithromycin 500 mg/250 ml [Zithromax 500 MG/ 250 ML Med 10/31/17 22:00 Active NaCl Premix] 500 mg in 250 ml IV QPM Azithromycin 500 mg/250 ml [Zithromax 500 MG/ 250 ML Med 10/31/17 00:48 Discontinued NaCl Premix] 500 mg in 250 ml IV STAT Azithromycin 500 mg/250 ml [Zithromax 500 MG/ 250 ML Med 10/31/17 01:55 Discontinued NaCl Premix] 500 mg in 250 ml IV UD Ceftriaxone 1 GM/50 ML PREMIX* [ROCEPHIN 1 Gm-D5w 50 ml Med 10/31/17 22:00 Active Bag] 1 g in 50 ml IV QPM Ceftriaxone 1 GM/50 ML PREMIX* [ROCEPHIN 1 Gm-D5w 50 ml Med 10/31/17 00:48 Discontinued Bag] 1 g in 50 ml IV STAT Ceftriaxone 1 GM/50 ML PREMIX* [ROCEPHIN 1 Gm-D5w 50 ml Med 10/31/17 01:22 Discontinued Bag] 1 g in 50 ml IV UD Fenofibrate,Micronized 145 mg* [Tricor 145 MG] Med 10/31/17 10:00 Active 145 mg PO DAILY Glimepiride 2 mg [Amaryl 2 MG] Med 10/31/17 08:00 Active 2 mg PO BREAKFAST Hydrochlorothiazide 25 mg [hydroDIURIL 25 MG] Med 10/31/17 10:00 Active 12.5 mg PO DAILY Levalbuterol HCl 1.25 MG/0.5M* [Xopenex 1.25 MG/0.5 ML Med 10/31/17 05:07 Active UD NEBULE] 1.25 mg IH Q2HPRN PRN Losartan Potassium 50 mg [Cozaar 50 MG] Med 10/31/17 10:00 Active 100 mg PO DAILY Medication Intervention Med 10/31/17 09:00 Active 1 each PO .RN TO CHECK ON Metformin HCl 500 mg [Glucophage 500 MG] Med 10/31/17 08:00 Active 1,000 mg PO BIDWM Methylprednis Sod Succ 125 mg* [solu-MEDROL 125 MG] Med 10/31/17 01:21 Discontinued 125 mg .ROUTE .STK-MED ONE Methylprednis Sod Succ 125 mg* [solu-MEDROL 125 MG] Med 10/31/17 00:48 Discontinued 125 mg IV STAT ONE Methylprednis Sod Succ 125 mg* [solu-MEDROL 125 MG] Med 10/31/17 06:00 Active 80 mg IV Q6HT NaCl 0.9% 1000 ml [Sodium Chloride 0.9% 1000 ML] 1,000 Med 10/31/17 01:22 Discontinued ml .ROUTE UD NaCl 0.9% 1000 ml [Sodium Chloride 0.9% 1000 ML] ,000 Med 10/31/17 01:56 Discontinued ml .ROUTE UD NaCl 0.9% 1000 ml [Sodium Chloride 0.9% 1000 ML] ,000 Med 10/31/17 05:15 Active ml IV 100 mls/hr NaCl 0.9% 1000 ml [Sodium Chloride 0.9% 1000 ML] ,000 Med 10/31/17 00:48 Discontinued ml IV 999 mls/hr NaCl 0.9% 1000 ml [Sodium Chloride 0.9% 1000 ML] ,000 Med 10/31/17 01:24 Discontinued ml IV 999 mls/hr NaCl 0.9% 1000 ml [Sodium Chloride 0.9% 1000 ML] ,000 Med 10/31/17 04:36 Discontinued ml IV 999 mls/hr Simvastatin 20Mg [Zocor 20Mg] Med 10/31/17 10:00 Active 40 mg PO DAILY Oxygen NASAL CANNULA 2 lpm RT 10/31/17 05:03 Active Pulse Oximetry CONTINUOUS RT 10/31/17 05:05 Active Respiratory Nebulizer Q4H RT 10/31/17 05:03 Active Respiratory Nebulizer STAT RT 10/31/17 00:50 Completed Transfer Order Routine Transfer 10/31/17 Completed Patient Care Notes (Last 24 hours) 10/31/17 10:21 Nursing Note by Fatoumata Mark [phone] Called [facility] for Dr. Marcus and he called back, Med list was verified and sent to pharmacy. Meds are getting passed now. Initialized on 10/31/17 10:21 - END OF NOTE Code(s): J45.909 - UNSPECIFIED ASTHMA, UNCOMPLICATED
[2017-10-31 12:06] VITALS: BP 141/81; PULSE 106; O2SAT 94
--- NOTE | 2017-10-31 12:41 | PCM.DCORD ---
- Discharge Discharge Date: 10/31/17 Disposition: Home, Self-Care Condition: Stable Prescriptions: New Albuterol 2.5 mg/3 ml Neb [Proventil 2.5 mg/3 ml Neb] 2.5 mg IH Q4HPRN PRN #30 neb PRN Reason: Constipation Cefdinir [Omnicef 300 mg] 300 mg PO BID #20 capsule Prednisone 20 mg [Deltasone 20 mg] 2 tab PO DAILY #8 tablet Methylprednisolone Packet [Medrol Dosepack] 4 mg PO UD #30 packet Continue Pravastatin Sodium 40 mg PO DAILY Metformin HCl 500 mg [Glucophage 500 MG] 1,000 mg PO BIDWM Losartan Potassium 100 mg PO DAILY hydroCHLOROthiazide [Hydrochlorothiazide] 12.5 mg PO DAILY Glimepiride 2 mg PO DAILY Fenofibrate,Micronized [Fenofibrate] 134 mg PO DAILY Empagliflozin [Jardiance] 25 mg PO DAILY Follow up with: MERE MONTES MD [Primary Care Provider] - 1 Week
[2017-10-31 13:19] LABS: Lactic Acid 4.3 (0.4-2.0)
[2017-10-31] MEDS ORDERED: ROCEPHIN 1 Gm-D5w 50 ml Bag** 1 G/50 ML IVPB IV SCH (22:00)
[2017-10-31] MEDS ORDERED: Zithromax 500 MG/ 250 ML NaCl Premix 500 MG/250 ML IVPB IV SCH (22:00)
== END 2017-10-31 14:50 | disposition home or self-care (01) ==
LOC: ED 00:24 → MED SURG 05:30
PROVIDERS: ADMIT General Practice; ATTEND General Practice
DX: J45.909 Unspecified asthma, uncomplicated (principal); E11.9 Type 2 diabetes mellitus without complications; Z79.4 Long term (current) use of insulin; I10 Essential (primary) hypertension; Z79.899 Other long term (current) drug therapy
CPT/HCPCS: 36000; 36415; 71045; 80053; 83036; 83605; 83735; 83880; 84484; 85025; 85379; 85610; 87040; 87631; 93005; 93041; 93268; 94150; 94640; 94760; 96360; 96365; 96367; 96374; 99285; J7609; J0456; J0696; J2930; A9270-GY; G0378